=== PATIENT | female | born 1995 | race Caucasian/White ===

== ENCOUNTER 2021-08-24 02:15 | Emergency (ER) | payer BC, OTHER, SELFPAY ==
[2021-08-24 02:16] VITALS: BP 153/93; PULSE 88; RESP 16; TEMP 37.1; O2SAT 99; BMI 38.4
[2021-08-24 02:48] LABS: Microscopic, Urine URINE MICROSCOPIC (MICROSCOPIC)
[2021-08-24 02:52] LABS: Appearance,Urine TURBID (Clear); Bilirubin,Urine Negative (Negative); Blood, Urine 3+ (Negative); Color,Urine ORANGE (Yellow); Glucose,Urine (UA) 1+ (Negative); Ketones,Urine TRACE (Negative); Nitrate,Urine POSITIVE (Negative); Protein,Urine 3+ (Negative); Specific Gravity, Urine >= 1.030 (1.005-1.030); Urobilinogen,Urine >=8.0 EU/dl (0.2)
[2021-08-24 02:54] LABS: Leukocyte Esterase,Urine TRACE (Negative)
[2021-08-24 02:55] LABS: RBC,Urine TNTC #/hpf (0-3); Urine Pregnancy, HCG Qual. Negative (Negative)
--- NOTE | 2021-08-24 03:33 | HMH.EDUROGF ---
ED Disposition Clinical Impression: Urinary tract infection Qualifiers: Urinary tract infection type: site unspecified Hematuria presence: without hematuria Qualified Code(s): N39.0 - Urinary tract infection, site not specified Disposition: Home, Self-Care Condition on Discharge: Good Instructions: DI for Urinary Tract Infection (UTI) Additional Instructions: use meds and call pcp for urine culture results Prescriptions: levoFLOXacin [Levaquin 500mg tab] 500 mg PO DAILY #7 tab Transmission Status: Pending to [id number] Referrals: Cleopatra Dan PA [Primary Care Provider] - - Critical Care Critical Care Time: No Attestation: On 08/24/21, the high probability of a clinically significant, sudden or life threatening deterioration of the following system(s) required my full and direct attention, intervention and personal management. The time I documented below is in addition to time spent performing reported procedures but includes the following listed in this critical care notation. Medical Decision Making - Medical Records Medical records reviewed: Yes: I reviewed the patient's medical records. - De Inquiry Pt receiving controlled substance: No Vital Signs: 08/24/21 02:16 Temperature 98.7 F Temperature Source Oral Pulse Rate [Left Radial] 88 Respiratory Rate 16 Blood Pressure [Right Arm] 153/93 H Blood Pressure Mean [Right Arm] 113 Blood Pressure Position [Right Arm] Sitting 02 Sat by Pulse Oximetry 99 Oxygen Delivery Method Room Air - Lab Data Lab results reviewed: Yes: I reviewed the patient's lab results. Lab Results 08/24/21 02:36: Urine Color Cecilia, Urine Appearance Turbid, Urine pH 5.0, Ur Specific [place] >= 1.030, Urine Protein 3+, Urine Glucose (UA) 1+, Urine Ketones Trace, Urine Blood 3+, Urine Nitrate Positive, Urine Bilirubin Negative, Urine Urobilinogen >=8.0, Ur Leukocyte Esterase Trace, Urine RBC Tntc, Urine WBC 10-20 08/24/21 02:36: Urine HCG, Qual Negative Orders (Tests/Meds): ORDERS Category Date Time Status Urine Culture Stat Micro 08/24/21 02:36 Received Medical Decision Narrative: has uti and will start abx and have pt call for culture results Female Urogenital HPI - General Chief complaint: Urogenital-Female Stated complaint: lover back pain,burning and blood in urine Time Seen by Provider: 08/24/21 03:00 Mode of Arrival: Ambulatory Source of Information: Patient, Medical Record Limitations: No Limitations Description of Symptoms (Recalled from ER Triage Doc. by RN): PT COMPLAIN OF PAIN AND BURNING WITH URINATION. - History of Present Illness HPI Narrative: freq and dysuria over the last few days MD Complaint: dysuria, UTI Onset (ago): day(s) Severity: moderate Urinary Symptoms: dysuria, frequency : No Associated symptoms: denies other symptoms - Related Data Home Medications Medication Instructions Recorded Confirmed Citalopram Hydrobromide 20 mg PO DAILY 08/24/21 08/24/21 [Citalopram HBr] Previous Rx's Medication Instructions Recorded lorazepam 1 mg tablet 1 mg PO DAILY PRN #14 tab 04/28/21 sumatriptan succinate 100 mg tablet 100 mg PO Q2H PRN #10 tab 04/28/21 levoFLOXacin [Levaquin 500mg 500 mg PO DAILY #7 tab 08/24/21 tab] Allergies Allergy/AdvReac Type Severity Reaction Status Date / Time No Known Allergies Allergy Verified 04/28/21 16:39 [facility] History - Hepatitis A Screen Drug use history?: No High risk sexual behaviors?: No History of sexually transmitted infection?: No Currently employed?: No Childcare worker?: No Do you have indoor plumbing?: Yes Do you have electricity?: Yes Attestation statement:: This patient has been screened for Hepatitis A risk factors. I have reviewed the patient's past medical history: Yes Medical History: Reports:: Migraine Other Surgeries: Yes: No Previous Surgery Amputation: No Fractures: No - Social History Smoking Status
[2021-08-24 04:35] VITALS: BP 153/93; PULSE 88; RESP 16; TEMP 37.1; O2SAT 98
== END 2021-08-24 04:38 | disposition home or self-care (01) ==
PROVIDERS: Emergency Provider Emergency Medicine; PCP Physician Assistant
DX: N30.00 Acute cystitis without hematuria (principal)
CPT/HCPCS: 81001; 81025; 87086; 87088; 87186; 99283

== ENCOUNTER → 2021-08-25 16:54 | Outpatient (CLI) | payer BC, OTHER, SELFPAY | PROVIDERS: Visit Provider Nurse Practitioner Family | DX: N39.0 Urinary tract infection, site not specified (principal) | CPT/HCPCS: 87086 ==

== ENCOUNTER → 2022-06-15 16:03 | Outpatient (CLI) | payer BC, OTHER, SELFPAY ==
[2022-06-15 18:28] LABS: HCG,Quantitative 8771 mIU/ml (0-5.42)
== END ==
PROVIDERS: PCP Physician Assistant; Visit Provider Obstetrics & Gynecology
DX: N92.6 Irregular menstruation, unspecified (principal); Z32.00 Encounter for pregnancy test, result unknown
CPT/HCPCS: 36415; 84144; 84702

== ENCOUNTER → 2022-06-24 16:03 | Outpatient (CLI) | payer BC, OTHER, SELFPAY ==
[2022-06-24 17:07] LABS: Basophils # 0.1 K/mm3 (0-0.2); Basophils % 0.8 % (0.1-2.0); Eosinophils # 0.1 K/mm3 (0.0-0.4); Hematocrit 35.1 % (37.0-47.0); Hemoglobin 11.3 g/dL (12.2-16.2); Lymphocytes % 21.3 % (10-50); Mean Corpuscular HGB Conc 32.1 g/dL (31.8-35.4); Mean Corpuscular Hemoglobin 25.5 pg (27.0-31.2); Mean Corpuscular Volume 79.6 fl (81-99); Mean Platelet Volume 9.9 fl (7.4-10.4); Monocytes # 0.4 K/mm3 (0.1-1.0); Monocytes % 4.1 % (1.7-9.3); Neutrophils % 72.8 % (37.0-80.0); Platelet Count 302 K/mm3 (142-424); Red Blood Count 4.41 M/mm3 (4.20-5.40); Red Cell Distribution Width 15.3 % (11.5-17.5); White Blood Count 9.6 K/mm3 (4.8-10.8)
[2022-06-24 17:25] LABS: Alanine Aminotransferase 25 U/L (12-78); Albumin Level 4.2 g/dl (3.5-5.0); Albumin/Globulin Ratio 1.5 (1.1-1.8); Alkaline Phosphatase 66 U/L (38-126); Anion Gap 5.5 mEq/L (5-15); Aspartate Amino Transferase 25 U/L (14-36); Bilirubin,Total 0.3 mg/dl (0.2-1.3); Blood Urea Nitrogen 11 mg/dl (7-17); Calcium 9.2 mg/dl (8.4-10.2); Carbon Dioxide 26 mmol/L (22.0-30.0); Chloride 107 mmol/L (98-107); Estimated Glomerular Filt Rate 121 ml/min (>60); GFR (African American) 146 ML/MIN (>60); Globulin 2.8 g/dL (1.3-3.2); Glucose 82 mg/dl (74-100); Potassium 4.5 mmoL/L (3.5-5.1); Sodium 134 mmol/L (136-145)
[2022-06-24 17:32] LABS: Creatinine,Urine Random 160 mg/dL (Not Estab.)
[2022-06-24 17:33] LABS: Microalbumin/Creatinine Ratio 12.2
[2022-06-26 08:33] LABS: HIV Screen 4th Generation wRfx Non Reactive (Non Reactive); Rubella Antibodies, IgG 1.02 index (Immune >0.99)
[2022-07-03 21:12] LABS: Hepatitis B Surface Antigen NEGATIVE; Hepatitis C Antibody NON REACTIVE; Rapid Plasma Reagin Ab Titer NON REACTIVE
== END ==
PROVIDERS: PCP Physician Assistant; Visit Provider Obstetrics & Gynecology
DX: Z34.90 Encounter for supervision of normal pregnancy, unspecified, unspecified trimester (principal)
CPT/HCPCS: 36415; 80053; 82043; 82570; 85025; 86593; 86703; 86762; 86850; 87086; 87340; 87380; G0432

== ENCOUNTER 2022-07-26 10:52 | Emergency (ER) | payer BC, OTHER, SELFPAY ==
--- NOTE | 2022-07-26 11:09 | US_ITS ---
FINAL REPORT TECHNIQUE: Sonographic images of the right upper quadrant were obtained. CLINICAL HISTORY: RUQ pain FINDINGS: PANCREAS: Unremarkable. LIVER: There is a 2.9 cm hyperechoic lesion in the left liver lobe, nonspecific, could represent hemangioma. No intrahepatic biliary ductal dilatation. GALLBLADDER: No gallstones. No gallbladder wall thickening or pericholecystic fluid. COMMON DUCT: 4 mm. Normal for age. RIGHT KIDNEY: The right kidney measures 12.0 cm. There is no hydronephrosis, mass, or stone. FREE FLUID: None. IMPRESSION: Hyperechoic liver lesion nonspecific could represent a hemangioma. Consider MRI follow-up after delivery. Reviewed, Interpreted and Dictated by Verna Flores MD Transcribed by Emma Arambula Authenticated and [facility]
--- NOTE | 2022-07-26 11:09 | US_ITS ---
FINAL REPORT CLINICAL HISTORY: Right side pain, 12 wk , evaluate for cyst FINDINGS: Sonographic images of the pelvis were obtained. The uterus is anteverted and anteflexed. A single, living intrauterine is noted. A yolk sac is present and measures 0.45 cm. [place] to rump length measures 44.3 cm which corresponds to 11 weeks 2 days gestation. Heartbeat is identified and measures 169 beats per minute. The right ovary measures 2.3 x 2.4 x 1.9 cm and is unremarkable. The left ovary measures 1.5 x 1.4 x 0.9 cm and is unremarkable. There is a tiny amount of fluid in the cervix which can be normal. IMPRESSION: Single, living, intrauterine gestation with 11 weeks 2 days gestational age. No ovarian cyst is identified. Reviewed, Interpreted and Dictated by Verna Flores MD Transcribed by Emma Arambula Authenticated and [facility]
[2022-07-26 11:12] VITALS: BP 143/59; PULSE 79; RESP 18; TEMP 36.9; O2SAT 98; BMI 37.3
--- NOTE | 2022-07-26 11:17 | HMH.EDGENADL ---
Discharge Plan Disposition Patient Disposition: Home, Self-Care Chief Complaint: Abdominal Pain Prescriptions Prescriptions: No Action labetalol 100 mg tablet 100 mg PO BID Qty: 60 2RF prenat.vits,erin,uif-plml-cgkxt Tablet 1 tab PO DAILY progesterone micronized [Prometrium] 200 mg capsule 200 mg vaginal HS 21 Days Qty: 21 0RF Referrals Follow up/Referrals: Cleopatra Dan PA [Primary Care Provider] - See instructions Activity Restrictions/Add. Instructions Additional Instructions/Restrictions: Return for worsening abdominal pain especially if your pain goes to the right lower quadrant. Return for fever or any other symptoms within 8 hours. Follow-up with your primary care physician within the next few days for reexamination. Follow-up for outpatient MRI to evaluate hemangioma. Clinical Impressions Clinical Impression: Abdominal pain during Instructions Patient Instructions: DI for Acute Abdominal Pain Discharge ED Provider: Dontrell Asher General Adult HPI General Chief complaint: Abdominal Pain Stated complaint: RT abd pain, 11 weeks Time Seen by Provider: 07/26/22 11:00 Mode of Arrival: Ambulatory Source of Information: Patient Limitations: No Limitations Description of Symptoms (Recalled from ER Triage Doc. by RN): pt reports a sharp pain in her R side that started a few days ago, pain is intermitent, denies N/V/D, or pain with urination, pt states she is almost 12 weeks , estimated due date february 11, reports no vaginal bleeding History of Present Illness HPI narrative: 26-year-old female 12-week presents with right-sided pain. She says the pain is intermittent and sharp. It is more right upper quadrant than the right lower quadrant. No fever chills no nausea vomiting diarrhea. She has had no vaginal bleeding spotting discharge dysuria hematuria fever or chills. She says the pain has been going on for a few days and she called Dr. Toro's office who recommended she come in for to the emergency department for evaluation Related Data Home Medications Medication Instructions Recorded Confirmed prenat.vits,erin,pvz-jggv-llvds 1 tab PO DAILY 06/24/22 07/16/22 Previous Rx's Medication Instructions Recorded labetalol 100 mg tablet 100 mg PO BID #60 tabs 07/08/22 progesterone micronized 200 mg 200 mg vaginal HS 3 weeks #21 caps 07/14/22 capsule (Prometrium) Allergies Allergy/AdvReac Type Severity Reaction Status Date / Time No Known Allergies Allergy Verified 07/16/22 09:17 [facility] Disclaimer: The information contained in this section may have been updated after the patient was seen, as this information can be updated by other users. Medical History Anxiety Chronic hypertension affecting Maternal obesity affecting , antepartum Migraine headache Surgical History No history of previous surgery Family History Mother Cancer Thyroid Grandmother Cancer Ovarian Social History Smoking Status: Never smoker alcohol intake: current substance use type: denies use current occupational status: employed Travel in the last 8 weeks: None ROS Obtained: Yes All systems reviewed & no additional complaints except as documented Constitutional Constitutional: Denies fatigue, Denies fever(s) and Denies headache(s) Eyes Eyes: Denies dry eyes ENT Ears, Nose, Mouth, and Throat: Denies dry mouth and Denies headache(s) Cardiovascular Cardiovascular: Denies diaphoresis and Denies dyspnea Respiratory Respiratory: Denies dyspnea and Denies wheezing Gastrointestinal Gastrointestingal: Denies constipation or heartburn Genitourinary Female Genitourinary: Denies difficulty voiding Muscu
[2022-07-26 11:30] VITALS: BP 159/66; PULSE 84; O2SAT 96
--- NOTE | 2022-07-26 11:31 | PC.NURSE ---
pt aware of need for ua.
--- NOTE | 2022-07-26 11:31 | PC.NURSE ---
notified rad of u/s orders for pt
[2022-07-26 11:33] LABS: Basophils # 0.1 K/mm3 (0-0.2); Basophils % 0.5 % (0.1-2.0); Eosinophils # 0.2 K/mm3 (0.0-0.4); Eosinophils % 2.2 % (0.1-12.0); Hematocrit 35.2 % (37.0-47.0); Hemoglobin 11.7 g/dL (12.2-16.2); Lymphocytes # 2.1 K/mm3 (0.7-4.5); Lymphocytes % 22.9 % (10-50); Mean Corpuscular HGB Conc 33.3 g/dL (31.8-35.4); Mean Corpuscular Hemoglobin 25.6 pg (27.0-31.2); Mean Corpuscular Volume 76.7 fl (81-99); Mean Platelet Volume 9.5 fl (7.4-10.4); Monocytes # 0.3 K/mm3 (0.1-1.0); Monocytes % 2.9 % (1.7-9.3); Neutrophils # 6.4 K/mm3 (1.8-7.8); Neutrophils % 71.5 % (37.0-80.0); Platelet Count 293 K/mm3 (142-424); Red Blood Count 4.59 M/mm3 (4.20-5.40); Red Cell Distribution Width 15.4 % (11.5-17.5); White Blood Count 8.9 K/mm3 (4.8-10.8)
[2022-07-26 11:40] LABS: Chloride 103 mmol/L (98-107); Potassium 3.8 mmoL/L (3.5-5.1); Sodium 135 mmol/L (136-145)
[2022-07-26 11:42] LABS: Alanine Aminotransferase 27 U/L (12-78); Alkaline Phosphatase 77 U/L (38-126); Aspartate Amino Transferase 26 U/L (14-36); Bilirubin,Total 0.4 mg/dl (0.2-1.3); Blood Urea Nitrogen 8 mg/dl (7-17); Creatinine Clearance Estimated 386 mL/min (50-200); Estimated Glomerular Filt Rate 193 ml/min (>60); GFR (African American) 233 ML/MIN (>60)
[2022-07-26 11:43] LABS: Albumin Level 4.5 g/dl (3.5-5.0); Albumin/Globulin Ratio 1.4 (1.1-1.8); Anion Gap 13.8 mEq/L (5-15); Calcium 9.4 mg/dl (8.4-10.2); Carbon Dioxide 22 mmol/L (22.0-30.0); Globulin 3.3 g/dL (1.3-3.2); Glucose 86 mg/dl (74-100); Lipase 57 U/L (23-300); Total Protein,Serum 7.8 g/dl (6.3-8.2)
--- NOTE | 2022-07-26 11:57 | PC.NURSE ---
pt to radiology
[2022-07-26 12:02] LABS: Microscopic, Urine URINE MICROSCOPIC (MICROSCOPIC)
[2022-07-26 12:04] LABS: Appearance,Urine CLEAR (Clear); Bilirubin,Urine Negative (Negative); Blood, Urine Negative (Negative); Color,Urine YELLOW (Yellow); Glucose,Urine (UA) Negative (Negative); Ketones,Urine 1+ (Negative); Leukocyte Esterase,Urine Negative (Negative); Nitrate,Urine Negative (Negative); Protein,Urine Negative (Negative); Specific Gravity, Urine >= 1.030 (1.005-1.030); Urobilinogen,Urine 0.2 EU/dl (0.2)
[2022-07-26 12:19] LABS: Bacteria,Urine 1+ /lpf; WBC,Urine Occasional #/hpf (0-3)
--- NOTE | 2022-07-26 12:39 | PC.NURSE ---
pt returned from ultrasound.
[2022-07-26 12:42] VITALS: BP 129/81; PULSE 82; O2SAT 100
[2022-07-26 13:00] VITALS: BP 135/69; PULSE 80; O2SAT 100
[2022-07-26 13:30] VITALS: BP 127/66; PULSE 84; O2SAT 99
--- NOTE | 2022-07-26 13:57 | PC.NURSE ---
checked with rad on status of u/s reports, states are printing preliminaries to us now. pt updated at this time
--- NOTE | 2022-07-26 14:00 | PC.NURSE ---
ER at updating pt on POC and results
[2022-07-26 14:12] VITALS: BP 119/95; PULSE 86; RESP 16; TEMP 36.6; O2SAT 97
== END 2022-07-26 14:13 | disposition home or self-care (01) ==
PROVIDERS: Emergency Provider Emergency Medicine; PCP Physician Assistant
DX: O99.611 Diseases of the digestive system complicating pregnancy, first trimester (principal); R10.31 Right lower quadrant pain; Z3A.11 11 weeks gestation of pregnancy
CPT/HCPCS: 76705; 76801; 80053; 81001; 83690; 84702; 85025; 99284; 99285

== ENCOUNTER → 2022-09-22 15:42 | Outpatient (CLI) | payer BC, OTHER, SELFPAY ==
--- NOTE | 2022-09-22 15:43 | US_ITS ---
FINAL REPORT CLINICAL HISTORY: 20 week anatomy scan please use anatomy template FINDINGS: There is a single live intrauterine gestation. Presentation is transverse. The cervix is closed and measures 5.4 cm. Placenta is posterior grade 1. movement is noted. Heart rate is detected at 142 beats per minute. Three-vessel cord with satisfactory umbilical cord insertion. Four-chamber heart is noted. SPINE: No anomalies identified. AMNIOTIC FLUID: Appropriate amount. MEASUREMENTS: ULTRASOUND AGE: 20 weeks 1 day. GESTATION AGE: 19 weeks 5 days. ESTIMATED WEIGHT: 342 g GROWTH PERCENTILE: 60 % BPD: 4.66 cm corresponding to 20 weeks 1 day. OFD: 6.16 cm corresponding to 20 weeks 6 days. HC: 17.16 cm corresponding to 19 weeks 6 days. AC: 14.50 cm corresponding to 19 weeks 6 days. FL: 3.26 cm corresponding to 20 weeks 2 days. CEREBELLUM: 2.01 cm corresponding to 20 weeks 4 days. HUMERUS: 2.89 cm corresponding to 19 weeks 3 days. HC/AC: 1.18 CI: 76% FL/BPD: 70% FL/AC: 22% IMPRESSION: Single living IUP with an ultrasound age of 20 weeks 1 day. Reviewed, Interpreted and Dictated by Laith Amador III, MD Transcribed by Cheryl Castro Authenticated and [facility]
== END ==
LOC: RAD 15:43
PROVIDERS: PCP Physician Assistant; Visit Provider Obstetrics & Gynecology
DX: Z34.90 Encounter for supervision of normal pregnancy, unspecified, unspecified trimester (principal); Z3A.20 20 weeks gestation of pregnancy
CPT/HCPCS: 76811

== ENCOUNTER → 2022-11-24 09:47 | Outpatient (CLI) | payer BC, OTHER, SELFPAY ==
[2022-11-24 10:03] LABS: Basophils % 0.2 % (0.1-2.0); Eosinophils # 0.1 K/mm3 (0.0-0.4); Eosinophils % 0.6 % (0.1-12.0); Hematocrit 32.3 % (37.0-47.0); Hemoglobin 10.3 g/dL (12.2-16.2); Lymphocytes # 1.5 K/mm3 (0.7-4.5); Lymphocytes % 15.2 % (10-50); Mean Corpuscular Hemoglobin 25.2 pg (27.0-31.2); Mean Corpuscular Volume 78.9 fl (81-99); Monocytes # 0.3 K/mm3 (0.1-1.0); Monocytes % 3.4 % (1.7-9.3); Neutrophils % 80.7 % (37.0-80.0); Platelet Count 305 K/mm3 (142-424); Red Blood Count 4.09 M/mm3 (4.20-5.40); White Blood Count 9.9 K/mm3 (4.8-10.8)
[2022-11-24 10:55] LABS: Glucose,Fasting 94 mg/dl (74-100)
[2022-11-24 11:45] LABS: Glucose 1 Hour 131 mg/dL (74-100)
== END ==
PROVIDERS: PCP Physician Assistant; Visit Provider Obstetrics & Gynecology
DX: Z34.92 Encounter for supervision of normal pregnancy, unspecified, second trimester (principal); Z3A.28 28 weeks gestation of pregnancy
CPT/HCPCS: 82951; 85025

== ENCOUNTER → 2022-11-30 10:50 | Outpatient (CLI) | payer BC, OTHER, SELFPAY ==
--- NOTE | 2022-11-30 10:51 | US_ITS ---
PROCEDURE: US OB BIOPHYSICAL PROFILE CLINICAL INDICATION: Chronic hypertension affecting . COMPARISON: 09/22/2022 FINDINGS: Transabdominal sonographic images of the uterus were obtained. From her established due date she is 29weeks 4days. The following parameters are obtained: Viable fetus in the cephalic presentation with a posterior placenta grade 1. Cervix: 4.8 cm Average ultrasound age is 30weeks 2days. Estimated due date by ultrasound is 02/06/2023. Estimated weight is 3lb 3.79oz. 49 percentile. heart rate: 143bpm bpm. BPD: 29weeks 1day OFD: 29weeks 1day HC: 30 weeks 0 AC: 29 weeks 5 days FL: 29 weeks 6 days HC/AC: 1.07 Cephalic index: 0.82 FL/BPD: 0.73 FL/AC: 0.22 Amniotic fluid index: 7.75cm Qualitative AFV: 2 breathing movements: 2 Gross body movements: 2 Tone: 2 Biophysical profile score: 8 No obvious anomalies evident.Kidneys, profile, nasion, four-chamber view, bladder, stomach, diaphragm, three-vessel cord appear normal. IMPRESSION: 1. Viable fetus in the cephalic presentation with a posterior placenta grade 1. 2. The fluid is within normal limits. 3. Biophysical profile /8 with good breathing movement seen. 4. There has been good interval growth with the fetus currently 49th percentile. Dictated by: James Oconnor MD 12/01/2022 08:59 James Oconnor MD in [place] 12/01/2022 08:59
== END ==
PROVIDERS: PCP Physician Assistant; Visit Provider Obstetrics & Gynecology
DX: O10.912 Unspecified pre-existing hypertension complicating pregnancy, second trimester (principal); Z3A.29 29 weeks gestation of pregnancy
CPT/HCPCS: 76816; 76819

== ENCOUNTER 2022-12-20 17:10 | Outpatient (CLI) | payer BC, OTHER, SELFPAY ==
[2022-12-20 17:28] VITALS: BMI 37.3
--- NOTE | 2022-12-20 17:31 | US_ITS ---
PROCEDURE INFORMATION: Exam: US Biophysical Profile Without Non-Stress Test Exam date and time: 12/20/2022 5:39 PM Age: 27 years old Clinical indication: Abnormal findings; Abnormal ultrasonic screening; Third trimester (=28 weeks 0 days); ; Additional info: Non reactive nst TECHNIQUE: Imaging protocol: US biophysical profile without non-stress testing. COMPARISON: US OB /MATERNAL DETAIL 09/22/2022 4:09 PM FINDINGS: heart rate: 142 bpm Amniotic fluid index: DANNY is 9.8 cm. BIOPHYSICAL PROFILE: breathing movement (BPP): 2 0:2/2 body movement (BPP): 2 0:2/2 tone (BPP): 2 0:2/2 Amniotic fluid (BPP): 2 0:2/2 Biophysical profile score (BPP): 8 0:8/8 Placenta along the fundus, grade 2. lie is cephalic. IMPRESSION: Biophysical profile score is 8 out of 8.
[2022-12-20 17:49] VITALS: BP 147/91; PULSE 68; RESP 18; TEMP 36.8; O2SAT 97; BMI 79.7
== END 2022-12-20 18:30 | disposition home or self-care (01) ==
LOC: OBOUT 17:12 → OB 17:13
PROVIDERS: Obstetrics & Gynecology; PCP Physician Assistant; Visit Provider Nurse Practitioner Obstetrics & Gynecology
DX: O26.893 Other specified pregnancy related conditions, third trimester (principal); Z3A.32 32 weeks gestation of pregnancy
CPT/HCPCS: 59025; 76819; G0463

== ENCOUNTER → 2022-12-28 10:16 | Outpatient (CLI) | payer BC, OTHER, SELFPAY | PROVIDERS: PCP Physician Assistant; Visit Provider Obstetrics & Gynecology | DX: O10.913 Unspecified pre-existing hypertension complicating pregnancy, third trimester (principal); Z3A.33 33 weeks gestation of pregnancy | CPT/HCPCS: 76816 ==

== ENCOUNTER → 2023-01-13 14:05 | Outpatient (CLI) | payer BC, OTHER, SELFPAY ==
--- NOTE | 2023-01-13 14:05 | US_ITS ---
PROCEDURE: US OB BIOPHYSICAL PROFILE CLINICAL INDICATION: chronic hypertension COMPARISON: FINDINGS: Transabdominal sonographic images were obtained of the uterus. From her established due date she is 35weeks 6days. The following parameters are obtained: Viable fetus in the cephalic presentation with a posterior placenta grade 2. The cervix measures 4.8 cm. heart rate: 140bpm bpm. Amniotic fluid index: 11.16cm Qualitative AFV: 2 breathing movements: 2 Gross body movements: 2 Tone: 2 Biophysical profile score: 8 No obvious anomalies evident.Kidneys, bladder, stomach, diaphragm, three-vessel cord appear normal. IMPRESSION: 1. Viable fetus in the cephalic presentation with a posterior placenta grade 2. 2. The fluid is within normal limits with an amniotic fluid index of 11.2 cm. 3. Biophysical profile is 8/8 with good breathing movement seen. Dictated by: James Oconnor MD 01/13/2023 21:29 James Oconnor MD in [place] 01/13/2023 21:29
== END ==
PROVIDERS: PCP Physician Assistant; Visit Provider Obstetrics & Gynecology
DX: O10.919 Unspecified pre-existing hypertension complicating pregnancy, unspecified trimester (principal); Z3A.35 35 weeks gestation of pregnancy
CPT/HCPCS: 76819

== ENCOUNTER → 2023-01-18 11:30 | Outpatient (CLI) | payer BC, OTHER, SELFPAY | PROVIDERS: Visit Provider Obstetrics & Gynecology | DX: O10.913 Unspecified pre-existing hypertension complicating pregnancy, third trimester (principal); Z3A.36 36 weeks gestation of pregnancy | CPT/HCPCS: 86403 ==

== ENCOUNTER 2023-01-23 14:30 | Inpatient (IN) | payer BC, OTHER, SELFPAY ==
[2023-01-23] VITALS (21 sets, daily range): BP systolic 133–182; BP diastolic 63–104; PULSE 73–111; RESP 17–20; TEMP 36.5–36.8; O2SAT 96–98; BMI 38.4
[2023-01-23 12:35] LABS: Basophils % 0.3 % (0.1-2.0); Eosinophils # 0.1 K/mm3 (0.0-0.4); Eosinophils % 0.5 % (0.1-12.0); Hematocrit 36.9 % (37.0-47.0); Hemoglobin 11.4 g/dL (12.2-16.2); Lymphocytes # 1.7 K/mm3 (0.7-4.5); Lymphocytes % 15.7 % (10-50); Mean Corpuscular Hemoglobin 24.5 pg (27.0-31.2); Mean Platelet Volume 9.8 fl (7.4-10.4); Monocytes # 0.3 K/mm3 (0.1-1.0); Monocytes % 3.1 % (1.7-9.3); Neutrophils # 8.5 K/mm3 (1.8-7.8); Neutrophils % 80.4 % (37.0-80.0); Platelet Count 342 K/mm3 (142-424); Red Blood Count 4.67 M/mm3 (4.20-5.40); Red Cell Distribution Width 16.2 % (11.5-17.5); White Blood Count 10.5 K/mm3 (4.8-10.8)
[2023-01-23 12:42] LABS: Chloride 107 mmol/L (98-107); Potassium 4.1 mmoL/L (3.5-5.1); Sodium 135 mmol/L (136-145)
[2023-01-23 12:45] LABS: Alanine Aminotransferase 29 U/L (12-78); Albumin Level 3.7 g/dl (3.5-5.0); Albumin/Globulin Ratio 1.1 (1.1-1.8); Alkaline Phosphatase 140 U/L (38-126); Anion Gap 11.1 mEq/L (5-15); Aspartate Amino Transferase 29 U/L (14-36); Blood Urea Nitrogen 11 mg/dl (7-17); Carbon Dioxide 21 mmol/L (22.0-30.0); Creatinine Clearance Estimated 262 mL/min (50-200); Estimated Glomerular Filt Rate 120 ml/min (>60); GFR (African American) 145 ML/MIN (>60); Globulin 3.4 g/dL (1.3-3.2); Total Protein,Serum 7.1 g/dl (6.3-8.2)
--- NOTE | 2023-01-23 12:45 | EXP.OB.APHP ---
OB - H&P: HPI Antepartum History of Present Illness Chief complaint: Decreased movement, low back pain, pelvic pressure, headache History of present illness: Mrs Estefany Nice is a 27 yo at 37w2d who presents to [facility] with complaint of decreased movement, low back pain, pelvic pressure and headache. She has CHTN and has been taking Labetalol 100 mg BID and baby Aspirin 81 mg nightly at bedtime. She has had good care. GBS negative. History of Present Criteria for establishing EDC:: LMP confirmed by 1st trimester US care: good care Ultrasounds: normal mid trimester US Medical complications: other (Chronic hypertension) Labs Blood type: A (+) positive Rubella: immune RPR/VDRL: nonreactive GBS status: negative HBsAG: negative PFSH [facility] Disclaimer: The information contained in this section may have been updated after the patient was seen, as this information can be updated by other users. Medical History (Updated 01/23/23 @ 13:02 by Sully Rasmussen DO) Anxiety Chronic hypertension affecting Maternal obesity affecting , antepartum Migraine headache with 37 weeks completed gestation Surgical History No history of previous surgery Family History Mother Cancer Grandmother Cancer Social History Smoking Status: Never smoker alcohol intake: current substance use type: denies use current occupational status: employed Travel in the last 8 weeks: None Review of Systems Review of Systems Review of systems:: pertinent systems reviewed and negative unless documented below Review of systems (narrative): Decreased movement Constitutional Constitutional: Reports headache(s) ENT Ears, Nose, Mouth, and Throat: Reports headache(s) *Genitourinary Genitourinary: Reports other (Pelvic pressure) *Musculoskeletal Musculoskeletal: Reports back pain *Neurologic Neurologic: Reports headache(s) Meds Home Medications and Allergies Home Medications Medication Instructions Recorded Confirmed Type prenat.vits,erin,qem-nuly-xevav 1 tab PO DAILY 06/24/22 01/20/23 History aspirin 81 mg capsule 81 mg PO DAILY 09/03/22 01/20/23 History labetalol 100 mg tablet 100 mg PO BID #60 tabs 01/04/23 01/20/23 Rx New Prescriptions to Start Prescriptions: Allergies Allergy/AdvReac Type Severity Reaction Status Date / Time No Known Allergies Allergy Verified 01/20/23 15:45 OB - H&P: Exam Physical Exam Vital signs: Temp Pulse Resp BP Pulse Ox O2 Del Method 97.7 F 106 H 20 145/96 H 97 Room Air 01/23/23 10:33 01/23/23 10:33 01/23/23 10:33 01/23/23 10:33 01/23/23 10:33 01/23/23 10:33 Constitutional no acute distress, obese and cooperative Routine HEENT Exam Head: Present normocephalic and atraumatic Eye: Absent conjunctivae pink ENT: Present mucous membranes moist and dentition normal Routine Neck Exam Present full ROM Routine Respiratory Exam Present CTA bilaterally and normal respiratory effort Routine Cardiovascular Exam Present RRR Routine Abdominal Exam Present soft (Gravid); Absent tenderness Routine Rectal Exam Patient deferred: visual exam Routine Exam External: Present normal urethra appearance; Absent erythema, tenderness, lesions or lacerations Routine Extremities Exam Present full ROM; Absent edema or calf tenderness Routine Neurological Exam Present alert, oriented X3 and moving all extremities Detailed Labor and Delivery Exam Dilation (cm): 0 Cervix position: posterior station: -3 Consistency: medium Membranes: intact Baseline heart rate: 150 monitor accelerations: Present monitor decelerations: None care home variability: Moderate (11-25) Tachysystole: No OB - Results Labs Labs: Short CBC 01/23/23 Range/
[2023-01-23 12:46] LABS: Calcium 8.9 mg/dl (8.4-10.2); Glucose 106 mg/dl (74-100)
[2023-01-23 12:47] LABS: Bilirubin,Total 0.1 mg/dl (0.2-1.3)
[2023-01-23 16:32] LABS: Microalbumin/Creatinine Ratio 19.2
[2023-01-23 16:53] LABS: Creatinine,Urine Random 66 mg/dL (Not Estab.)
[2023-01-24] VITALS (34 sets, daily range): BP systolic 120–194; BP diastolic 59–99; PULSE 59–123; RESP 16–20; TEMP 36.7; O2SAT 98–99
--- NOTE | 2023-01-24 08:12 | HMH.PHAINT1 ---
Pharmacy Intervention Comments: MEDICATION RECONCILIATION COMPLETED ON PATIENT USING EXTERNAL FILL HISTORY FROM PHARMACY. -HARPAL WILLIAMSON, JOSHD
--- NOTE | 2023-01-24 08:36 | EXP.LABOR.NO ---
Labor Note Subjective: Date: 01/24/23 Time: 08:36 irregular contractions Objective: NST:: Reactive Contractions:: infrequent Cervical Dilation:: 2 Effacement:: 75% Station: -2 Membranes: spontaneously ruptured (SROM at 0730, clear fluid) Fetus: Monitoring?: Yes monitoring type:: Internal and External Comment:: IUPC inserted without difficulty Problems: (1) with 37 weeks completed gestation: Category: Medical Code(s): Z3A.37 - 37 weeks gestation of (2) Chronic hypertension affecting : Problem Comment: elevation in BP despite previous control with Labetalol 100 mg PO BID Category: Medical Code(s): O10.919 - Unspecified pre-existing hypertension complicating , unspecified trimester (3) Maternal obesity affecting , antepartum: Qualifiers: Obesity type affecting : unspecified obesity Qualified Code(s): O99.210 - Obesity complicating , unspecified trimester Category: Medical Code(s): O99.210 - Obesity complicating , unspecified trimester Plan: Continue to monitor?: Yes Additional information:: Continue Labetalol 100 mg PO BID. BP is elevated this morning but she did not get her Labetalol last night. Will administer her Labetalol 100 mg this morning. If BP remains sever after scheduled BP medication will start mag sulfate Start Pitocin per protocol Close monitoring
--- NOTE | 2023-01-24 11:33 | EXP.ANES.CKL ---
[facility] Disclaimer: The information contained in this section may have been updated after the patient was seen, as this information can be updated by other users. Medical History (Updated 01/23/23 @ 13:02 by Sully Rasmussen DO) Anxiety Chronic hypertension affecting Maternal obesity affecting , antepartum Migraine headache with 37 weeks completed gestation Surgical History No history of previous surgery Family History Mother Cancer Grandmother Cancer Social History Smoking Status: Never smoker alcohol intake: current substance use type: denies use current occupational status: employed Travel in the last 8 weeks: None [facility] Anesthesia Checklist Patient Identification Patient Identification: Arm Band Structural Data Admitted From: Inpatient Planned Operative Procedure/s: Labor Epidural Consent for Planned Operative Procedure(s) Verified: Yes Verified Documents: Surgical Consent and History and Physical NPO Status Verified Time NPO: 00:00 Additional verifications Anesthesia Reactions: No Airway Assessment Mallampati Score:: Class II Neurological Assessment Level of Consciousness: Awake and Alert Anesthesia Plan Anesthesia Risk discussed: Yes Anesthesia Plan: Verified ASA Class: II Anesthesia Type: Epidural
[2023-01-24 17:01] LABS: Magnesium 4.2 mg/dl (1.6-2.3)
--- NOTE | 2023-01-24 17:12 | EXP.LABOR.NO ---
Labor Note Subjective: Date: 01/24/23 Time: 17:12 regular contraction Objective: NST:: Reactive Contractions:: every 2-3 minutes Cervical Dilation:: 9-10 Effacement:: 100% Station: +1 Membranes: ruptured Fetus: Monitoring?: Yes monitoring type:: Internal and External Assessment: Labor progressing?: Yes Cephalopelvic disproportion?: No Plan: Anesthesia for epidural?: Yes Continue to labor down?: Yes Plan for ?: No Continue to monitor?: Yes Start pushing?: No Comment:: She is now fully dilated and the head is station +1. We will allow the head to come down a little more before she starts pushing.
--- NOTE | 2023-01-24 18:42 | EXP.LABOR.NO ---
Labor Note Subjective: Date: 01/24/23 Time: 18:42 regular contraction Objective: NST:: Reactive Contractions:: every 2-3 minutes Cervical Dilation:: 9-10 Effacement:: 100% Station: +3 Membranes: ruptured Fetus: Monitoring?: Yes monitoring type:: Internal and External Assessment: Labor progressing?: Yes Cephalopelvic disproportion?: No Plan: Anesthesia for epidural?: Yes Continue to labor down?: Yes Plan for ?: No Continue to monitor?: Yes Start pushing?: Yes Continue pushing?: Yes Comment:: She continues to push. The baby's head is vertex is visible. There is some molding and some caput. We will continue to push. She is doing very well.
--- NOTE | 2023-01-24 19:23 | EXP.DN ---
Delivery Note Delivery Date:: 01/24/23 Delivery Time:: 19:10 Anesthesia Type: Epidural Was labor medically induced?: Yes Induction method: per misoprostol protocol Gestational age (weeks): 37 Infant delivered prior to 39 weeks?: Yes Justification for early elective delivery:: Pre-eclampsia Infant Gender: Female at 1 minute: 7 at 5 minutes: 9 LAC or MLE?: LAC (First-degree vaginal) Delivery Procedure:: She is a 27-year-old 1 para 7 and 3 weeks. She had a previous blood pressure and as result of that her labor was induced. She received Cytotec overnight and then spontaneously ruptured her membranes. She then received IV oxytocin to regulate her contractions and under labor epidural progressed to full dilation. She delivered spontaneously a liveborn female child at 7:10 PM in the evening of January 24, 2023. On delivery the head it was noted there was a tight nuchal cord. I delivered the rest the infant's body and then reduced the cord. The baby cried spontaneously although was slightly limp. The cord was clamped and cut and the infant was handed off to nurses who assigned Apgars of 7 at 1 minute and 9 at 5 minutes. We then obtained cord blood. She received IV oxytocin using gentle traction on the cord and countertraction the fundus I was able to easily deliver the placenta intact 3 minutes after the delivery. It had a normal three-vessel cord. She had a first-degree vaginal laceration that was repaired with running 3-0 Vicryl Rapide suture. There were no perineal lacerations. Estimated blood loss was approximately 300 cc. Laceration:: vaginal Placental Delivery Description: Spontaneous
[2023-01-25] VITALS (18 sets, daily range): BP systolic 122–166; BP diastolic 60–86; PULSE 71–104; RESP 15–20; TEMP 36.5–36.8; O2SAT 99–100
[2023-01-25 06:49] LABS: Hematocrit 29.9 % (37.0-47.0); Hemoglobin 9.2 g/dL (12.2-16.2)
[2023-01-25 07:10] LABS: Magnesium 4.9 mg/dl (1.6-2.3)
--- NOTE | 2023-01-25 08:55 | EXP.ACUTE.PN ---
Subjective *Date: 01/25/23 *Time: 10:01 Interval history: PPD # 1 s/p Resting comfortably in bed. She is currently on mag sulfate. Pain controlled. She is breast feeding. Appropriate lochia. Voiding without difficulty and passing flatus. Tolerating regular diet. Denies fever/chills, chest pain and shortness of breath. No headaches, lightheadedness/dizziness or vision changes. Admits to mild lower extremity swelling. Ambulating well ad alphonso. Medical Exam Vital signs and Labs for Last 24 Hours: Vital Signs Temp Pulse Resp BP BP Pulse Ox O2 Del Method 01/25/23 06:27 81 17 148/77 H 01/25/23 05:20 71 17 135/67 01/25/23 04:20 93 H 132/79 01/25/23 04:09 72 16 141/80 H 01/25/23 03:25 75 15 135/86 01/25/23 02:20 80 17 141/72 H 01/25/23 01:20 77 15 122/60 01/25/23 00:20 80 17 131/61 01/24/23 23:20 82 17 125/59 L 01/24/23 22:20 85 19 132/63 01/24/23 21:12 105 H 19 161/88 H 98 Room Air 01/24/23 20:56 88 161/76 H 01/24/23 20:42 109 H 156/75 H 01/24/23 20:26 98.1 F 101 H 20 148/68 H 98 Room Air 01/24/23 19:57 101 H 150/73 H 01/24/23 19:42 95 H 171/85 H 01/24/23 19:31 104 H 17 168/70 H 01/24/23 19:11 123 H 175/98 H 01/24/23 17:45 76 17 134/75 01/24/23 16:00 85 17 133/76 01/24/23 14:00 65 16 139/69 01/24/23 13:00 80 16 133/68 01/24/23 15:00 78 16 148/74 H 01/24/23 12:20 75 133/71 01/24/23 12:15 81 132/71 01/24/23 12:10 75 132/70 01/24/23 12:05 76 120/66 01/24/23 12:00 61 18 136/65 99 01/24/23 11:25 144/78 H 01/24/23 10:55 183/94 H Intake and Output 01/24/23 01/25/23 01/25/23 23:59 07:59 15:59 Output Total 700 / 1575 700 / 700 Balance -700 / -1575 -700 / -700 Output: Output, Urine Amount 300 / 300 700 / 700 Output, Urine Amount (Catheter) 400 / 1275 [place] 400 / 1275 Other: Number of Voids 1 1 Laboratory Results - last 24 hr 01/24/23 10:50: Magnesium 2.0 01/24/23 16:15: Magnesium 4.2 H D 01/25/23 06:22: Hgb 9.2 L, Hct 29.9 L, Magnesium 4.9 H D I & O for Labs for Last 24 Hours: Intake & Output 01/22/23 01/23/23 01/24/23 01/25/23 23:59 23:59 23:59 23:59 Output Total 1575 / 1575 700 / 700 Balance -1575 / -1575 -700 / -700 Weight 260 lb Head: Present atraumatic and normocephalic ENT: Present normal exam and mucous membranes moist Neck: Present full ROM Respiratory: Present CTA bilaterally and normal respiratory effort Cardiac: Present Reg Rate and Rhythm GI: Present soft and normal bowel sounds; Absent distention or tenderness Comments:: Uterine fundus firm, below umbilicus Rectal (female): Present deferred (female): Present deferred Extremities: Present edema (+1 bilateral lower extremity edema); Absent tenderness or calf tenderness Assessment and Plan *Assessment and plan (1) with 37 weeks completed gestation: Status: Acute Category: Medical Code(s): Z3A.37 - 37 weeks gestation of (2) Status post normal vaginal delivery: Status: Acute Category: Medical (3) Chronic hypertension affecting : Problem Comment: elevation in BP despite previous control with Labetalol 100 mg PO BID Status: Acute Category: Medical Code(s): O10.919 - Unspecified pre-existing hypertension complicating , unspecified trimester (4) Maternal obesity affecting , antepartum: Status: Acute Qualifiers: Obesity type affecting : unspecified obesity Qualified Code(s): O99.210 - Obesity complicating , unspecified trimester Category: Medical Code(s): O99.210 - Obesity complicating , unspecified trimester Plan Continue routine care Continue Labetalol 100 mg PO BID Continue magnesium sulfate until 24 hours
[2023-01-26 04:11] VITALS: BP 143/79; PULSE 79; RESP 15; TEMP 36.8; O2SAT 100
--- NOTE | 2023-01-26 10:13 | EXP.DC.SUM ---
General Admission date:: 01/23/23 Discharge date: 01/26/23 HPI HPI HPI: PPD # 2 s/p Estefany is feeling well. Pain controlled. She is breast feeding. Light lochia. Voiding without difficulty and passing flatus. Tolerating regular diet. Denies fever/chills, chest pain and shortness of breath. No headaches, vision changes, lightheadedness/dizziness. Admits to mild lower extremity swelling. Ambulating well ad alphonso. Hospital Course Hospital Course Hospital Course: Mrs Estefany Nice is a 27 yo at 37w2d admitted to [facility] L&[facility] for induction of labor secondary to CHTN on Labetalol 100 mg BID and baby Aspirin 81 mg nightly at bedtime. Blood pressures were elevated, with some severe range on Labetalol 100 mg PO BID. She received Labetalol 20 mg IV x 1 dose and was started on mag sulfate for severe range BP. PO Labetalol was continued. She underwent induction of labor with Cytotec followed by Pitocin. She delivered a live female baby, Lavender, weighing 6 lb 3 oz. APGARs 7, 9. EBL 300 mL. She did well . Pain controlled. Breast feeding. Mag sulfate was continued until 24 hours after delivery. Voiding without difficulty and passing flatus. Tolerating regular diet. Denies fever/chills, chest pain and shortness of breath. No headaches, vision changes, lightheadedness/dizziness. Admits to mild lower extremity swelling. Ambulating well ad alphonso. Normal hospital course. She was discharged home on PPD # 2. Exam Data for Last 24 hours Vital signs and Labs for Last 24 Hours: Temp Pulse Resp BP Pulse Ox O2 Del Method 98.3 F 79 15 143/79 H 100 Room Air 01/26/23 04:11 01/26/23 04:11 01/26/23 04:11 01/26/23 04:11 01/26/23 04:11 01/26/23 04:11 I & O for Last 24 hours: Intake & Output 01/23/23 01/24/23 01/25/23 01/26/23 23:59 23:59 23:59 23:59 Output Total 1575 / 1575 700 / 700 Balance -1575 / -1575 -700 / -700 Weight 260 lb Constitutional Constitutional: no acute distress and cooperative *Routine HEENT Exam Head: Present normocephalic and atraumatic Eye: Absent conjunctivae pink ENT: Present mucous membranes moist and dentition normal *Routine Neck Exam Neck: Present full ROM *Routine Respiratory Exam Respiratory: Present CTA bilaterally and normal respiratory effort *Routine Cardiovascular Exam Cardiovascular: Present RRR *Routine Abdominal Exam Abdominal: Present soft and normoactive bowel sounds; Absent tenderness or distended Comments: Uterine fundus firm and below umbilicus *Routine Rectal Exam Patient deferred: visual exam *Routine Exam Patient deferred: external exam *Routine Extremities Exam Extremities: Present edema (+1 bilateral lower extremity swelling) and full ROM; Absent calf tenderness *Routine Neurological Exam Neurological: Present alert, oriented X3 and moving all extremities Routine Psychiatric Exam Psychiatric: Present normal affect and cooperative DS: Diagnosis Discharge Diagnosis (1) with 37 weeks completed gestation: Status: Acute Code(s): Z3A.37 - 37 weeks gestation of (2) Status post normal vaginal delivery: Status: Acute (3) Chronic hypertension affecting : Status: Acute Code(s): O10.919 - Unspecified pre-existing hypertension complicating , unspecified trimester Problem details: elevation in BP despite previous control with Labetalol 100 mg PO BID (4) Maternal obesity affecting , antepartum: Status: Acute Code(s): O99.210 - Obesity complicating , unspecified trimester Qualifiers: Obesity type affecting : unspecified obesity Qualified Code(s): O99.210 - Obesity complicating , unspecified trimester (5) Acute blood loss anemia: Status: Acute Code(s): D62 - Acute posthemorrhagic anemia Meds Home Medications and Allergies Home Medications Medication Instructions Recorded Confirmed Type labetalol 100 mg ta
== END 2023-01-26 12:40 | disposition home or self-care (01) | DRG 807 ==
LOC: OBOUT 01-24 08:17 → OB 01-24 08:18
PROVIDERS: Nurse Practitioner Obstetrics & Gynecology; Admitting Provider Obstetrics & Gynecology; PCP Physician Assistant; Visit Provider Obstetrics & Gynecology
DX: O10.919 Unspecified pre-existing hypertension complicating pregnancy, unspecified trimester (principal); Z37.0 Single live birth; Z3A.37 37 weeks gestation of pregnancy; O99.344 Other mental disorders complicating childbirth; O14.94 Unspecified pre-eclampsia, complicating childbirth; O69.81X0 Labor and delivery complicated by cord around neck, without compression, not applicable or unspecified; O99.214 Obesity complicating childbirth
CPT/HCPCS: 59409; 36415; 59025; 80053; 82043; 82570; 83735; 85014; 85018; 85025; 86850; 94761; C1758; G0283; J0595; J2405